=== PATIENT | female | born 1965 | race African-American/Black ===

== ENCOUNTER 2016-08-24 16:53 | Emergency (ER) | payer MEDICAID | END 2016-08-24 17:44 | disposition home or self-care (01) | DX: L03.312 Cellulitis of back [any part except buttock and flank] (principal); L02.212 Cutaneous abscess of back [any part, except buttock and flank] | CPT/HCPCS: 99283; A4606; A6402; Z7610 ==

== ENCOUNTER 2016-08-27 16:32 | Emergency (ER) | payer MEDICAID, OTHER ==
[~2016-08-27] VITALS: Ht 167.6 cm; Wt 68.0 kg
[2016-08-27 16:32] VITALS: BP 177/109
[2016-08-27] MEDS ORDERED: CLIN300C97 PO (17:18)
== END 2016-08-27 17:58 | disposition home or self-care (01) ==
LOC: ER 16:37
DX: L02.212 Cutaneous abscess of back [any part, except buttock and flank] (principal); L72.3 Sebaceous cyst
CPT/HCPCS: 99283; A4606; Z7610